=== PATIENT | male | born 1945 | race Caucasian/White ===

== ENCOUNTER 2023-08-01 21:28 | Inpatient (IN) | payer MEDICARE ==
[~2023-08-01] VITALS: Ht 185.4 cm; Wt 86.2 kg
[2023-08-01 22:30] LABS: INR 1.46 (0.91-1.10); PARTIAL THROMBOPLASTIN TIME 27.3 SEC (24.3-34.3); PROTHROMBIN TIME 15.1 SECS (9.2-11.1)
[2023-08-01] MEDS ORDERED: IV NS 0.9% 1,000 ML BAG IV ONE (22:30)
[2023-08-01 22:57] LABS: APPEARANCE,URINE CLEAR (CLEAR); BILIRUBIN,URINE 1+ (NEGATIVE); BLOOD, URINE NEGATIVE Ery/uL (NEGATIVE); COLOR,URINE DARK YELLOW (YELLOW); KETONES,URINE NEGATIVE (NEGATIVE); LEUKOCYTE ESTERASE ,URINE NEGATIVE (NEGATIVE); NITRITE, URINE NEGATIVE (NEGATIVE); PH,URINE 5.5 (5.0-8.0); PROTEIN,URINE NEGATIVE (NEGATIVE); UGLUCOSE NEGATIVE (NEGATIVE)
[2023-08-01 23:02] LABS: CALCIUM, SERUM 7.6 mg/dL (8.5-10.1); CARBON DIOXIDE 27 mmol/L (21-32); CHLORIDE 102 mmol/L (98-107); CREATININE 1.2 mg/dL (0.6-1.3); GLUCOSE 207 mg/dL (74-106); POTASSIUM 3.4 mmol/L (3.5-5.1); SODIUM SERUM 139 mmol/L (136-145); UREA NITROGEN, BLOOD 18 mg/dL (7-18)
[2023-08-01 23:08] LABS: ADD URINE CULTURE NO; BACTERIA,URINE Rare /HPF (None Seen); RBC,URINE 0-2 /HPF (0-2); SQUAMOUS EPITHELIAL CELL,UR Rare /HPF (None Seen); WBC,URINE 0-2 /HPF (0-3)
[2023-08-01 23:11] LABS: BASOPHILS % (AUTO) 0.1 % (0.0-2.0); EOSINOPHILS # (AUTO) 0.1 K/uL (0.0-0.7); EOSINOPHILS % (AUTO) 0.5 % (0.0-6.0); LYMPHOCYTES # (AUTO) 1.7 K/uL (0.8-4.8); LYMPHOCYTES % (AUTO) 13.6 % (20.0-44.0); MEAN CORPUSCULAR HEMOGLOBIN 28 PG (26.0-33.0); MEAN CORPUSCULAR HGB CONC 30 g/dl (31.0-36.0); MEAN CORPUSCULAR VOLUME 92 fL (80-96); MONOCYTES # (AUTO) 0.8 K/uL (0.1-1.30); NEUTROPHILS % (AUTO) 79.8 % (43.0-81.0); PLATELET COUNT (AUTO) 76 K/uL (150-450); RED BLOOD CELL COUNT(AUTO) 1.79 MIL/uL (4.5-6.0); RED CELL DISTRIBUTION WIDTH 19.2 % (11.5-15.0); WHITE BLOOD COUNT (AUTO) 12.6 K/uL (4.3-11.0)
[2023-08-01 23:12] LABS: LACTIC ACID 3.4 mmol/L (0.4-2.0)
[2023-08-01 23:13] LABS: HEMATOCRIT 17 % (39-51)
[2023-08-01 23:23] LABS: ALANINE AMINOTRANSFERASE 31 U/L (12-78); ALBUMIN 1.8 g/dL (3.4-5.0); ALKALINE PHOSPHATASE 548 U/L (46-116); ASPARTATE AMINOTRANSFERASE 30 U/L (15-37); BILIRUBIN,DIRECT 0.5 mg/dL (0.0-0.2); BILIRUBIN,TOTAL 0.9 mg/dL (0.2-1.0); TOTAL PROTEIN, SERUM 4.3 g/dL (6.4-8.2)
[2023-08-01] MEDS ORDERED: CEFEPIME 1 GM VIAL ONE (23:55)
[2023-08-01] MEDS ORDERED: VANCOMYCIN 1 GM /D5W 250 ML PB IV ONE (23:56)
[2023-08-02] VITALS (7 sets, daily range): BP systolic 96–122; BP diastolic 50–62; TEMP 97.9–99; O2SAT 94–98
[2023-08-02] MEDS ORDERED: CEFEPIME 1 GM in IV D5W 50 ML IV ONE ×2
[2023-08-02] MEDS ORDERED: VANCOMYCIN 1 GM in IV D5W 250 ML IV ONE ×2
[2023-08-02 00:21] LABS: ANISOCYTOSIS 1+; BASOPHILS % (MANUAL) 0 % (0.0-2.0); EOSINOPHILS % (MANUAL) 1 % (0-4); HYPOCHROMASIA 2+; LYMPHOCYTES % (MANUAL) 10 % (16-48); MONOCYTES % (MANUAL) 8 % (0-11.0); NEUTROPHILS % (MANUAL) 81 (42-76); OVALOCYTES 1+; PLATELET ESTIMATE DECREASED
[2023-08-02] MEDS ORDERED: ONDANSETRON HCL/PF 4 MG/2 ML VIAL IVP PRN (00:30)
[2023-08-02] MEDS ORDERED: Z GUARD REMEDY 4 OZ OINT TP PRN (00:30)
[2023-08-02] MEDS ORDERED: HYDROCODONE/APAP 5/325MG TABLET PO PRN (00:30)
[2023-08-02] MEDS ORDERED: MAGNESIUM HYDROXIDE 30 ML UDC PO PRN (00:30)
[2023-08-02] MEDS ORDERED: ACETAMINOPHEN 325 MG TABLET PO PRN (00:30)
[2023-08-02] MEDS ORDERED: IV NS 0.9% 1,000 ML BAG IV ONE (00:30)
[2023-08-02] MEDS ORDERED: MAG HYDROX/AL HYDROX/SIMETH 30 ML UDC PO PRN (00:30)
[2023-08-02 00:48] LABS: IRON, SERUM 17 ug/dl (50-175); TOTAL IRON BINDING CAPACITY 112 ug/dl (250-450)
[2023-08-02] MEDS ORDERED: DEXTROSE 50%-WATER 50 ML DISP.SYRIN IV PRN (01:00)
[2023-08-02 01:03] LABS: FERRITIN 483 ng/mL (8-388)
[2023-08-02] MEDS: BLOOD SUGAR DIAGNOSTIC 1 EACH STRIP IN SCH ×4 (08:00→21:27)
[2023-08-02] MEDS ORDERED: PANT20TA2 PO (08:01)
[2023-08-02] MEDS ORDERED: INSU300I SQ (08:01)
[2023-08-02] MEDS ORDERED: LIPA1CAP15 PO (08:01)
[2023-08-02] MEDS ORDERED: FURO-144 PO (08:01)
[2023-08-02] MEDS ORDERED: APIX5TAB PO (08:01)
[2023-08-02] MEDS ORDERED: IRBE300T19 PO (08:01)
[2023-08-02] MEDS ORDERED: ROSU40TA PO (08:01)
[2023-08-02] MEDS ORDERED: MAGN250T10 PO (08:01)
[2023-08-02] MEDS ORDERED: METF-440 PO (08:01)
[2023-08-02] MEDS ORDERED: LORA10TA7 PO (08:01)
[2023-08-02] MEDS ORDERED: PANTOPRAZOLE 40 MG VIAL ONE (08:29)
[2023-08-02] MEDS: PANTOPRAZOLE 40 MG VIAL IV SCH (08:33)
[2023-08-02] MEDS ORDERED: INSULIN REGULAR, HUMAN 100 UNIT/ML 10 ML VIAL ONE (08:40)
[2023-08-02] MEDS ORDERED: ROSU20TA2 PO (08:42)
[2023-08-02] MEDS ORDERED: POTA20TA83 PO (08:42)
[2023-08-02] MEDS ORDERED: BENZ200C53 PO (08:42)
[2023-08-02] MEDS: INSULIN REGULAR, HUMAN 100 UNIT/ML 3 ML VIAL SQ PRN ×4 (08:45→21:48)
[2023-08-02 08:57] LABS: CALCIUM, SERUM 7.7 mg/dL (8.5-10.1); CREATININE 1.1 mg/dL (0.6-1.3); POTASSIUM 3.5 mmol/L (3.5-5.1)
[2023-08-02] MEDS ORDERED: POTASSIUM CHLORIDE 20 MEQ TAB.PRT.SR PO ONE ×2 (09:00→09:07)
[2023-08-02] MEDS: CEFEPIME 1 GM in IV D5W 50 ML IV SCH ×2 (11:12→20:00)
[2023-08-02 11:31] LABS: CREATININE 1.1 mg/dL (0.6-1.3); POTASSIUM 3.3 mmol/L (3.5-5.1)
[2023-08-02 11:37] LABS: ALBUMIN 1.8 g/dL (3.4-5.0); BILIRUBIN,TOTAL 0.9 mg/dL (0.2-1.0); TOTAL PROTEIN, SERUM 6.7 g/dL (6.4-8.2)
[2023-08-02] MEDS: VANCOMYCIN 0.75 GM in IV D5W 250 ML IV SCH (12:15)
[2023-08-02 12:28] LABS: HEMOGLOBIN 6.7 g/dL (13.5-17.5)
[2023-08-02] MEDS: LIPASE/PROTEASE/AMYLASE 1 EACH CAPSULE.DR PO SCH ×2 (14:41→18:59)
[2023-08-02] MEDS: TEMAZEPAM 15 MG CAPSULE PO PRN (23:01)
[2023-08-03] VITALS (7 sets, daily range): BP systolic 107–131; BP diastolic 53–75; TEMP 97.5–98.8; O2SAT 95–98
[2023-08-03] MEDS: VANCOMYCIN 0.75 GM in IV D5W 250 ML IV SCH ×3 (01:12→23:56)
[2023-08-03] MEDS: BLOOD SUGAR DIAGNOSTIC 1 EACH STRIP IN SCH ×4 (06:21→22:06)
[2023-08-03] MEDS: INSULIN REGULAR, HUMAN 100 UNIT/ML 3 ML VIAL SQ PRN ×4 (06:25→22:07)
[2023-08-03 07:03] LABS: BASOPHILS # (AUTO) 0.1 K/uL (0.0-0.2); BASOPHILS % (AUTO) 0.2 % (0.0-2.0); EOSINOPHILS # (AUTO) 0.1 K/uL (0.0-0.7); EOSINOPHILS % (AUTO) 0.6 % (0.0-6.0); HEMATOCRIT 24 % (39-51); HEMOGLOBIN 7.4 g/dL (13.5-17.5); LYMPHOCYTES # (AUTO) 2.5 K/uL (0.8-4.8); LYMPHOCYTES % (AUTO) 10.5 % (20.0-44.0); MEAN CORPUSCULAR HEMOGLOBIN 29 PG (26.0-33.0); MEAN CORPUSCULAR HGB CONC 31 g/dl (31.0-36.0); MEAN CORPUSCULAR VOLUME 91 fL (80-96); MONOCYTES # (AUTO) 0.7 K/uL (0.1-1.30); MONOCYTES % (AUTO) 2.8 % (2.0-12.0); NEUTROPHILS # (AUTO) 20.2 K/uL (1.8-8.9); NEUTROPHILS % (AUTO) 85.9 % (43.0-81.0); PLATELET COUNT (AUTO) 77 K/uL (150-450); RED BLOOD CELL COUNT(AUTO) 2.58 MIL/uL (4.5-6.0); RED CELL DISTRIBUTION WIDTH 17.5 % (11.5-15.0); WHITE BLOOD COUNT (AUTO) 23.5 K/uL (4.3-11.0)
[2023-08-03 07:25] LABS: THYROID STIMULATING HORMONE 3.047 uIU/mL (0.358-3.74)
[2023-08-03 07:29] LABS: MAGNESIUM 1.7 mg/dL (1.8-2.4); PHOSPHORUS 2.5 mg/dL (2.5-4.9); POTASSIUM 3.7 mmol/L (3.5-5.1)
[2023-08-03] MEDS: PANTOPRAZOLE 40 MG VIAL IV SCH (08:46)
[2023-08-03] MEDS: LIPASE/PROTEASE/AMYLASE 1 EACH CAPSULE.DR PO SCH ×3 (08:46→17:12)
[2023-08-03] MEDS: CEFEPIME 1 GM in IV D5W 50 ML IV SCH ×2 (08:49→20:26)
[2023-08-03] MEDS ORDERED: MAGNESIUM OXIDE 400 MG TABLET PO ONE (09:30)
[2023-08-03 12:45] LABS: ANISOCYTOSIS 1+; BASOPHILS % (MANUAL) 0 % (0.0-2.0); EOSINOPHILS % (MANUAL) 0 % (0-4); HYPOCHROMASIA 1+; LYMPHOCYTES % (MANUAL) 8 % (16-48); MONOCYTES % (MANUAL) 3 % (0-11.0); NEUTROPHILS % (MANUAL) 89 (42-76); OVALOCYTES 1+; PLATELET ESTIMATE DECREASED
[2023-08-03] MEDS: TEMAZEPAM 15 MG CAPSULE PO PRN (21:47)
[2023-08-04] VITALS: BP 112/65; TEMP 98.1; O2SAT 96
[2023-08-04 04:00] VITALS: BP 138/75; TEMP 98; O2SAT 96
[2023-08-04 06:29] LABS: BASOPHILS % (AUTO) 0.1 % (0.0-2.0); EOSINOPHILS # (AUTO) 0.1 K/uL (0.0-0.7); EOSINOPHILS % (AUTO) 0.6 % (0.0-6.0); HEMATOCRIT 23 % (39-51); HEMOGLOBIN 7.4 g/dL (13.5-17.5); LYMPHOCYTES # (AUTO) 2.7 K/uL (0.8-4.8); LYMPHOCYTES % (AUTO) 11.2 % (20.0-44.0); MEAN CORPUSCULAR HEMOGLOBIN 28 PG (26.0-33.0); MEAN CORPUSCULAR HGB CONC 31 g/dl (31.0-36.0); MEAN CORPUSCULAR VOLUME 90 fL (80-96); MONOCYTES # (AUTO) 1.2 K/uL (0.1-1.30); MONOCYTES % (AUTO) 4.9 % (2.0-12.0); NEUTROPHILS # (AUTO) 20.2 K/uL (1.8-8.9); NEUTROPHILS % (AUTO) 83.2 % (43.0-81.0); PLATELET COUNT (AUTO) 85 K/uL (150-450); RED BLOOD CELL COUNT(AUTO) 2.59 MIL/uL (4.5-6.0); RED CELL DISTRIBUTION WIDTH 17.7 % (11.5-15.0); WHITE BLOOD COUNT (AUTO) 24.3 K/uL (4.3-11.0)
[2023-08-04] MEDS: BLOOD SUGAR DIAGNOSTIC 1 EACH STRIP IN SCH ×4 (06:41→22:31)
[2023-08-04] MEDS: INSULIN REGULAR, HUMAN 100 UNIT/ML 3 ML VIAL SQ PRN ×4 (06:42→22:31)
[2023-08-04 06:52] LABS: CALCIUM, SERUM 7.8 mg/dL (8.5-10.1); CREATININE 0.9 mg/dL (0.6-1.3); MAGNESIUM 1.7 mg/dL (1.8-2.4); POTASSIUM 3.3 mmol/L (3.5-5.1)
[2023-08-04 07:30] VITALS: BP 114/69; TEMP 98.6; O2SAT 100
[2023-08-04] MEDS: PANTOPRAZOLE 40 MG VIAL IV SCH (08:05)
[2023-08-04] MEDS: CEFEPIME 1 GM in IV D5W 50 ML IV SCH (08:05)
[2023-08-04] MEDS: LIPASE/PROTEASE/AMYLASE 1 EACH CAPSULE.DR PO SCH ×3 (08:11→17:12)
[2023-08-04 10:21] LABS: ANISOCYTOSIS 1+; BASOPHILS % (MANUAL) 0 % (0.0-2.0); EOSINOPHILS % (MANUAL) 2 % (0-4); LYMPHOCYTES % (MANUAL) 12 % (16-48); MONOCYTES % (MANUAL) 5 % (0-11.0); NEUTROPHILS % (MANUAL) 81 (42-76); PLATELET ESTIMATE DECREASED; STOMATOCYTES 1+
[2023-08-04] MEDS: VANCOMYCIN 0.75 GM in IV D5W 250 ML IV SCH ×2 (10:29→23:54)
[2023-08-04] MEDS: FUROSEMIDE 40 MG/4 ML VIAL IV SCH ×2 (10:29→17:12)
[2023-08-04] MEDS: MORPHINE SULFATE INJ 2 MG/ML DISP.SYRIN IV PRN ×3 (10:45→20:58)
[2023-08-04] MEDS: Magnesium 1GM/D5W 100ML PREMIX 100 ML IV SCH ×2 (11:24→12:42)
[2023-08-04] MEDS: POTASSIUM CL. PREMIX PERIPHER. 50 ML IV SCH ×2 (13:57→14:59)
[2023-08-04 16:00] VITALS: BP 105/57; TEMP 98.2; O2SAT 95
[2023-08-04 20:00] VITALS: BP 113/65; TEMP 99.1; O2SAT 96
[2023-08-04] MEDS: CEFEPIME 2 GM in IV D5W 100 ML IV SCH (20:58)
[2023-08-04] MEDS: TEMAZEPAM 15 MG CAPSULE PO PRN (23:58)
[2023-08-05] VITALS: BP 109/58; TEMP 98.7; O2SAT 95
[2023-08-05 04:00] VITALS: BP 117/66; TEMP 97.9; O2SAT 96
[2023-08-05 06:19] LABS: BASOPHILS # (AUTO) 0.1 K/uL (0.0-0.2); BASOPHILS % (AUTO) 0.3 % (0.0-2.0); EOSINOPHILS # (AUTO) 0.1 K/uL (0.0-0.7); EOSINOPHILS % (AUTO) 0.4 % (0.0-6.0); HEMATOCRIT 25 % (39-51); LYMPHOCYTES # (AUTO) 3.2 K/uL (0.8-4.8); LYMPHOCYTES % (AUTO) 13.6 % (20.0-44.0); MEAN CORPUSCULAR HEMOGLOBIN 29 PG (26.0-33.0); MEAN CORPUSCULAR HGB CONC 32 g/dl (31.0-36.0); MEAN CORPUSCULAR VOLUME 92 fL (80-96); MONOCYTES # (AUTO) 1.1 K/uL (0.1-1.30); MONOCYTES % (AUTO) 4.6 % (2.0-12.0); NEUTROPHILS # (AUTO) 19.2 K/uL (1.8-8.9); NEUTROPHILS % (AUTO) 81.1 % (43.0-81.0); PLATELET COUNT (AUTO) 108 K/uL (150-450); RED BLOOD CELL COUNT(AUTO) 2.74 MIL/uL (4.5-6.0); RED CELL DISTRIBUTION WIDTH 18.1 % (11.5-15.0); WHITE BLOOD COUNT (AUTO) 23.6 K/uL (4.3-11.0)
[2023-08-05] MEDS: BLOOD SUGAR DIAGNOSTIC 1 EACH STRIP IN SCH ×4 (06:38→22:51)
[2023-08-05] MEDS: INSULIN REGULAR, HUMAN 100 UNIT/ML 3 ML VIAL SQ PRN ×4 (06:39→22:51)
[2023-08-05] MEDS: MORPHINE SULFATE INJ 2 MG/ML DISP.SYRIN IV PRN ×4 (06:54→22:50)
[2023-08-05 07:00] VITALS: BP 104/53; TEMP 98.1; O2SAT 94
[2023-08-05 08:00] LABS: CALCIUM, SERUM 7.4 mg/dL (8.5-10.1); CREATININE 0.9 mg/dL (0.6-1.3); MAGNESIUM 1.8 mg/dL (1.8-2.4); POTASSIUM 3.4 mmol/L (3.5-5.1)
[2023-08-05] MEDS: LIPASE/PROTEASE/AMYLASE 1 EACH CAPSULE.DR PO SCH ×3 (09:12→17:45)
[2023-08-05] MEDS: FUROSEMIDE 40 MG/4 ML VIAL IV SCH ×2 (09:12→16:46)
[2023-08-05] MEDS: PANTOPRAZOLE 40 MG VIAL IV SCH (09:13)
[2023-08-05] MEDS: CEFEPIME 2 GM in IV D5W 100 ML IV SCH ×2 (09:13→21:05)
[2023-08-05] MEDS ORDERED: POTASSIUM CHLORIDE 20 MEQ POWDER PACKET PO ONE (10:00)
[2023-08-05] MEDS: VANCOMYCIN 0.75 GM in IV D5W 250 ML IV SCH ×2 (11:34→22:52)
[2023-08-05 19:28] VITALS: BP 112/61; TEMP 97.4; O2SAT 97
[2023-08-05 20:00] VITALS: BP 97/51; TEMP 98.1; O2SAT 95
[2023-08-05 20:37] LABS: OCCULT BLOOD STOOL POSITIVE (NEGATIVE)
[2023-08-06] VITALS: BP 100/57; TEMP 98.4; O2SAT 97
[2023-08-06 04:00] VITALS: BP 110/65; TEMP 97.8; O2SAT 93
[2023-08-06] MEDS: BLOOD SUGAR DIAGNOSTIC 1 EACH STRIP IN SCH ×3 (06:32→17:30)
[2023-08-06] MEDS: INSULIN REGULAR, HUMAN 100 UNIT/ML 3 ML VIAL SQ PRN (06:32)
[2023-08-06 06:41] LABS: BASOPHILS # (AUTO) 0.1 K/uL (0.0-0.2); BASOPHILS % (AUTO) 0.2 % (0.0-2.0); EOSINOPHILS # (AUTO) 0.1 K/uL (0.0-0.7); EOSINOPHILS % (AUTO) 0.4 % (0.0-6.0); HEMATOCRIT 27 % (39-51); HEMOGLOBIN 8.2 g/dL (13.5-17.5); LYMPHOCYTES # (AUTO) 3.1 K/uL (0.8-4.8); LYMPHOCYTES % (AUTO) 12.6 % (20.0-44.0); MEAN CORPUSCULAR HEMOGLOBIN 29 PG (26.0-33.0); MEAN CORPUSCULAR HGB CONC 31 g/dl (31.0-36.0); MEAN CORPUSCULAR VOLUME 94 fL (80-96); MONOCYTES # (AUTO) 1.2 K/uL (0.1-1.30); NEUTROPHILS # (AUTO) 19.8 K/uL (1.8-8.9); NEUTROPHILS % (AUTO) 81.8 % (43.0-81.0); PLATELET COUNT (AUTO) 117 K/uL (150-450); RED BLOOD CELL COUNT(AUTO) 2.87 MIL/uL (4.5-6.0); RED CELL DISTRIBUTION WIDTH 18.5 % (11.5-15.0); WHITE BLOOD COUNT (AUTO) 24.2 K/uL (4.3-11.0)
[2023-08-06 06:47] LABS: CALCIUM, SERUM 7.9 mg/dL (8.5-10.1); CREATININE 0.7 mg/dL (0.6-1.3); POTASSIUM 3.6 mmol/L (3.5-5.1)
[2023-08-06 07:00] VITALS: BP 111/61; TEMP 98.1; O2SAT 95
[2023-08-06] MEDS: LIPASE/PROTEASE/AMYLASE 1 EACH CAPSULE.DR PO SCH ×4 (08:00→17:30)
[2023-08-06] MEDS: FUROSEMIDE 40 MG/4 ML VIAL IV SCH ×2 (10:17→17:30)
[2023-08-06] MEDS: PANTOPRAZOLE 40 MG VIAL IV SCH (10:17)
[2023-08-06] MEDS ORDERED: IV NS 0.9% 250 ML IV ONE (10:27)
[2023-08-06] MEDS ORDERED: IOHEXOL-300 100 ML VIAL IV ONE (10:27)
[2023-08-06 12:00] VITALS: BP 100/60; TEMP 98.1; O2SAT 97
[2023-08-06] MEDS: CEFEPIME 2 GM in IV D5W 100 ML IV SCH (12:47)
[2023-08-06] MEDS: VANCOMYCIN 0.75 GM in IV D5W 250 ML IV SCH (13:14)
[2023-08-06 16:00] VITALS: BP 121/70; TEMP 98.1; O2SAT 96
== END 2023-08-06 19:45 | disposition short-term general hospital (02) | DRG 871 ==
LOC: ER 22:01 → TRANSITION 08-02 07:53 → TELE 08-02 11:11 → MED 08-05 18:24 → TELE 08-05 21:09 → MED 08-06 13:48
PROVIDERS: ADMIT Nurse Practitioner Acute Care; ATTEND Internal Medicine
PROC: 30233N1 Transfusion of Nonautologous Red Blood Cells into Peripheral Vein, Percutaneous Approach (ICD-10-PCS; principal; 2023-08-02)
DX: A41.9 Sepsis, unspecified organism (principal); E43 Unspecified severe protein-calorie malnutrition; E87.1 Hypo-osmolality and hyponatremia; E87.20 Acidosis, unspecified; R18.8 Other ascites; C25.9 Malignant neoplasm of pancreas, unspecified; D64.9 Anemia, unspecified; E11.9 Type 2 diabetes mellitus without complications; E78.5 Hyperlipidemia, unspecified; E88.09 Other disorders of plasma-protein metabolism, not elsewhere classified; I11.0 Hypertensive heart disease with heart failure; Z85.07 Personal history of malignant neoplasm of pancreas; Z90.49 Acquired absence of other specified parts of digestive tract; Z20.822 Contact with and (suspected) exposure to COVID-19; I95.9 Hypotension, unspecified; R53.1 Weakness; Z90.411 Acquired partial absence of pancreas; D69.59 Other secondary thrombocytopenia; T45.1X5A Adverse effect of antineoplastic and immunosuppressive drugs, initial encounter; Y92.009 Unspecified place in unspecified non-institutional (private) residence as the place of occurrence of the external cause; Z79.60 Long term (current) use of unspecified immunomodulators and immunosuppressants; I50.9 Heart failure, unspecified; Z79.84 Long term (current) use of oral hypoglycemic drugs; Z79.4 Long term (current) use of insulin; R93.5 Abnormal findings on diagnostic imaging of other abdominal regions, including retroperitoneum
CPT/HCPCS: 36415; 71045-TC; 76700-TC; 80048-TC; 80053-TC; 80061-TC; 80076-TC; 80202-TC; 81001; 82272-TC; 82728-TC; 82962-TC; 83540-TC; 83605-TC; 83735-TC; 83880; 84100-TC; 84443-TC; 84484-TC; 85025-TC; 85027-TC; 85730-TC; 86850-TC; 87040-TC; 87086-TC; 93307-TC; 93970-TC; 97110-TC; 97116-TC; 97530-TC; A4223; C9113; G0378; J0692; J1815; J1940; J2270; J3370; J3475; J3480; J7030; J7040; J7050; J7060; P9016; Q9967